=== PATIENT | male | born 1975 | race Two or more races ===

== ENCOUNTER 2020-07-17 07:18 | Outpatient (CLI) | payer OTHER | END 2020-07-17 07:22 | disposition home or self-care (01) | LOC: LAB 07:18 | PROVIDERS: ATTEND General Practice | DX: E66.8 Other obesity (principal); Z11.4 Encounter for screening for human immunodeficiency virus [HIV]; I10 Essential (primary) hypertension; Z13.89 Encounter for screening for other disorder; Z13.220 Encounter for screening for lipoid disorders; Z11.3 Encounter for screening for infections with a predominantly sexual mode of transmission; Z12.5 Encounter for screening for malignant neoplasm of prostate; Z12.11 Encounter for screening for malignant neoplasm of colon; Z13.1 Encounter for screening for diabetes mellitus ==

== ENCOUNTER 2020-07-21 13:54 | Outpatient (CLI) | payer OTHER | END 2020-07-21 13:58 | disposition home or self-care (01) | LOC: LAB 13:54 | PROVIDERS: ATTEND General Practice | DX: I10 Essential (primary) hypertension (principal); Z13.89 Encounter for screening for other disorder; Z13.220 Encounter for screening for lipoid disorders; Z11.3 Encounter for screening for infections with a predominantly sexual mode of transmission; Z12.5 Encounter for screening for malignant neoplasm of prostate; Z12.11 Encounter for screening for malignant neoplasm of colon; Z13.1 Encounter for screening for diabetes mellitus; Z13.228 Encounter for screening for other metabolic disorders; E66.8 Other obesity ==

== ENCOUNTER 2020-08-14 08:36 | Outpatient (CLI) | payer OTHER | END 2020-08-14 09:04 | disposition home or self-care (01) | LOC: SONOGRAMA 08:36 | PROVIDERS: ATTEND General Practice | DX: K76.0 Fatty (change of) liver, not elsewhere classified (principal) ==